=== PATIENT | female | born 2005 | race Caucasian/White ===

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

== ENCOUNTER → 2024-08-30 | Outpatient (CLI) | payer BC ==
[2024-09-01 11:07] LABS: TB1 Ag VALUE 0.08 IU/mL (.)
== END | disposition home or self-care (01) ==
LOC: LAB 11:36
PROVIDERS: ATTEND Pediatrics
DX: Z00.00 Encounter for general adult medical examination without abnormal findings (principal)

== ENCOUNTER 2024-10-13 17:45 | Emergency (ER) | payer BC ==
[~2024-10-13] VITALS: Ht 157.4 cm; Wt 40.8 kg
[2024-10-13 18:22] LABS: BASO # 0.1 10*3/uL (0.0-0.1); BASO % 0.8 % (0.0-1.0); EOS # 0.8 10*3/uL (0.0-0.4); EOS % 10.7 % (1.0-4.0); MEAN CELL VOLUME 89.2 fl (81.0-99.0); MEAN CORPUSCULAR HGB 29.9 pg (27.0-31.0); MEAN PLATELET VOLUME 9.8 fl (9.6-12.3); MONO # 1.2 10*3/uL (0.1-1.0); MONO % 15.8 % (3.0-9.0); NEUT # 2.8 10*3/uL (2.3-7.9); NEUT % 38.1 % (47.0-73.0); NUCLEATED RED BLOOD CELL 0.0 % (0.0-0.0); NUCLEATED RED BLOOD CELL 0.0 10*3/uL (0.0-0.0); PLATELET COUNT AUTOMATED 248 10*3/uL (130-400); RED CELL DISTRI WIDTH 12.5 % (0-14.5)
[2024-10-13 18:33] LABS: ACT PARTIAL THROMBO TIME 26.8 SECONDS (20.0-32.1)
[2024-10-13 18:42] LABS: BETA-HCG, QUANT < 3.0 mIU/mL (3-10); BUN 6 mg/dl (9-23)
[2024-10-13 19:10] LABS: BILIRUBIN Negative (Negative); BLOOD Negative (Negative); CLARITY Cloudy (Clear); COLOR Yellow (Yellow); KETONE Trace (Negative); LEUKO ESTERASE Trace (Negative); NITRITE Negative (Negative); PH 5.5 (4.5-8.0); SPECIFIC GRAVITY 1.025 (1.001-1.030); UROBILINOGEN 1.0 E.U./dl (0.0-1.0)
[2024-10-13 19:20] LABS: BACTERIA 2+; EPITHELIAL CELLS 0-2; MUCOUS 2+; RBC 0-2 rbc/hpf (0-2)
[2024-10-13] MEDS ORDERED: METHOCARBAMOL500 M1 PO (20:23)
== END 2024-10-13 20:30 | disposition home or self-care (01) ==
LOC: ED 17:45
PROVIDERS: Internal Medicine
DX: B27.90 Infectious mononucleosis, unspecified without complication (principal); R53.1 Weakness; Z98.890 Other specified postprocedural states

== ENCOUNTER 2024-11-20 22:15 | Emergency (ER) | payer OTHER, BC ==
[~2024-11-20] VITALS: Wt 40.8 kg
[~2024-11-20 22:15] MED LIST changes: +METHOCARBAMOL500 M1 PO
[2024-11-20] MEDS ORDERED: SODIUM CHLORIDE 0.9% 1,000 ML IV ONE (22:45)
[2024-11-20] MEDS ORDERED: Ondansetron Hydrochloride 4 MG/2 ML VIAL IV ONE (22:45)
[2024-11-20] MEDS ORDERED: Ondansetron4 MG PO (23:36)
[2024-11-21] MEDS ORDERED: Ondansetron 4 MG 2 TAB ED PACK PO SCH (01:05)
== END 2024-11-21 01:15 | disposition home or self-care (01) ==
LOC: ED 22:15
DX: S09.90XA Unspecified injury of head, initial encounter (principal); W22.8XXA Striking against or struck by other objects, initial encounter; Y93.89 Activity, other specified; Y92.89 Other specified places as the place of occurrence of the external cause; Y99.8 Other external cause status

== ENCOUNTER 2025-01-14 00:31 | Emergency (ER) | payer BC ==
[~2025-01-14] VITALS: Ht 157.4 cm; Wt 41.7 kg
[~2025-01-14 00:31] MED LIST changes: +Ondansetron4 MG PO
[2025-01-14] MEDS ORDERED: VIBRAMYCIN100 MG PO (05:22)
== END 2025-01-14 05:26 | disposition home or self-care (01) ==
LOC: ED 00:31
DX: L02.416 Cutaneous abscess of left lower limb (principal); F17.290 Nicotine dependence, other tobacco product, uncomplicated